=== PATIENT | female | born 1970 | race Caucasian/White ===

== ENCOUNTER 2022-01-17 13:55 | Emergency (ER) | payer SELFPAY ==
[2022-01-17] MEDS ORDERED: traMADol 50 MG Tab PO ONE (13:56)
== END 2022-01-17 14:30 | disposition home or self-care (01) ==
LOC: FB.ED 13:55
DX: M54.50 Low back pain, unspecified (principal); E66.01 Morbid (severe) obesity due to excess calories; F17.210 Nicotine dependence, cigarettes, uncomplicated
CPT/HCPCS: 99282; 99283; A9270-GY

== ENCOUNTER 2024-09-06 18:43 | Emergency (ER) | payer OTHER ==
[2024-09-06] MEDS ORDERED: Sodium Chloride 0.9% 10 ML Syringe FLUSH PRN (18:55)
[2024-09-06 19:11] LABS: BLOOD UREA NITROGEN,BUN 13 mg/dL (7-18); BUN/CREATININE RATIO 16.3 (9-20); CALCIUM 9.7 mg/dL (8.6-10.2); CARBON DIOXIDE,CO2 34 mmol/L (21-32); CHLORIDE,CL 98 mmol/L (100-110); CREATININE 0.8 mg/dL (0.55-1.02); ESTIMATED GFR 86 mL/min (>60); GLUCOSE RANDOM 170 mg/dL (80-116); POTASSIUM,K 3.4 mmol/L (3.5-5.3); SODIUM,NA 142 mmol/L (135-145)
[2024-09-06] MEDS: Albuterol/Ipratropium 3.0-0.5 MG/3 ML Neb Soln NEB ONE (19:15)
[2024-09-06] MEDS: methylPREDNISolone Sodium Succinate 125 MG/2 ML SDV IM ONE (19:15)
[2024-09-06 19:17] LABS: A/G RATIO 0.6; ALANINE AMINOTRANSFERASE,ALT 20 U/L (12-36); ALBUMIN 2.8 g/dL (3.5-5.2); ALKALINE PHOSPHATASE 128 IU/L (56-112); ASPARTATE AMNIOTRANSFERASE,AST 11 IU/L (5-25); BILIRUBIN TOTAL 0.6 mg/dL (0.1-1.3); PROTEIN TOTAL,TP 7.5 g/dL (6.0-8.0)
[2024-09-06 20:14] LABS: HEMATOCRIT 46.3 % (34.2-48.2); HEMOGLOBIN 15.8 g/dL (11.4-15.5); MEAN CORPUSCULAR HEMOGLOBIN 31.6 pg (23.9-33.9); MEAN CORPUSCULAR VOLUME 92.8 fL (76.7-100.5); MEAN PLATELET VOLUME 8.1 fL (7.1-12.4); PLATELET COUNT,PLT 306 x10(3)uL (151-488); RED BLOOD CELL COUNT 4.99 x10(6)uL (3.60-5.20); RED CELL DISTRIBUTION WIDTH 14.6 % (12.3-16.5); WHITE BLOOD CELL COUNT,WBC 13.9 x10-3/uL (3.0-10.3)
[2024-09-06 20:22] LABS: LYMPHOCYTES PERCENT MAN 5 % (13-37); MONOCYTES PERCENT MAN 5 % (4-12); SEG NEUTROPHILS PERCENT MAN 90 % (46-82)
[2024-09-06] MEDS: Iopamidol 755 Mg/ML 100 ML Bottle IV ONE (20:52)
[2024-09-06] MEDS: Magnesium Sulfate/Water Premix 2 GM in Premix Bag 1 BAG IV ONE (21:25)
[2024-09-06] MEDS: cefTRIAXone 1 GM Vial IVPUSH ONE (22:20)
== END 2024-09-07 11:35 | disposition home or self-care (01) ==
LOC: FB.ED 18:43
DX: J44.1 Chronic obstructive pulmonary disease with (acute) exacerbation (principal); J21.9 Acute bronchiolitis, unspecified; I10 Essential (primary) hypertension; Z86.16 Personal history of COVID-19; F17.210 Nicotine dependence, cigarettes, uncomplicated
CPT/HCPCS: 36415; 71046; 71275; 80053; 83735; 83880; 85025; 86140; 87428; 96365; 96372; 96375; 99285; J0696; J2919; J3475; Q9967; J7620